=== PATIENT | female | born 1950 | race Asian ===

== ENCOUNTER 2022-08-17 04:34 | Inpatient (IN) | payer OTHER ==
[2022-08-12 12:09] VITALS: BMI 20.5
[2022-08-17] MEDS ORDERED: METHYLENE BLUE 50 MG/10 ML AMPUL ONE (11:08)
[2022-08-17] MEDS ORDERED: LIDOCAINE HCL 1%, 10 MG/ML (20ML VIAL) ONE (11:08)
[2022-08-17] MEDS ORDERED: ACETAMINOPHEN INJECTION 200 ML IVPB ONE (12:07)
[2022-08-17] MEDS ORDERED: DEXMEDETOMIDINE HCL 200 MCG/2 ML IVPB ONE (12:07)
[2022-08-17] MEDS ORDERED: FENTANYL CITRATE/PF 50 MCG/ML VIAL ONE ×2 (12:08→15:32)
[2022-08-17] MEDS ORDERED: MIDAZOLAM HCL 2 MG/2 ML SINGLE DOSE VIAL ONE (12:09)
[2022-08-17] MEDS ORDERED: PROPOFOL 40 ML ONE (12:16)
[2022-08-17] MEDS ORDERED: SUCCINYLCHOLINE CHLORIDE 200 MG/10 ML SYRINGE ONE (12:16)
[2022-08-17] MEDS ORDERED: ISOSULFAN BLUE 50 MG/5 ML VIAL SQ ONE (12:35)
[2022-08-17] MEDS ORDERED: ceFAZolin SODIUM 1 GM VIAL IVPB ONE (13:18)
[2022-08-17] MEDS ORDERED: GENTAMICIN SO4 80 MG/2 ML VIAL ONE (13:41)
[2022-08-17] MEDS ORDERED: VANCOMYCIN 1,000 MG VIAL (RESTRICTED TO ID ONLY) ONE (13:42)
[2022-08-17] MEDS ORDERED: HEPARIN NA (PORCINE) 5,000 UNITS/ML 1ML VIAL SQ ONE (13:59)
[2022-08-17] MEDS ORDERED: HEPARIN NA (PORCINE) PF 1,000 UNITS/ML - 2ML VIAL SQ ONE (14:02)
[2022-08-17] MEDS ORDERED: LIDOCAINE HCL 1%, 10 MG/ML (20ML VIAL) INF ONE (14:04)
[2022-08-17] MEDS ORDERED: BUPIVACAINE HCL/PF 0.5% (5MG/ML) 10 ML VIAL IJ ONE (14:05)
[2022-08-17] MEDS ORDERED: ONDANSETRON 4 MG/2 ML VIAL IVPB PRN (15:05)
[2022-08-17] MEDS ORDERED: ACETAMINOPHEN 325 MG TABLET (FP) PO PRN ×2 (15:05→15:08)
[2022-08-17] MEDS ORDERED: ALPRAZolam 1 MG TABLET PO PRN (15:05)
[2022-08-17] MEDS ORDERED: HYDROmorphone HCl 2 MG/ML VIAL IM PRN (15:07)
[2022-08-17] MEDS ORDERED: oxyCODONE HCL 5 MG TABLET PO PRN (15:08)
[2022-08-17] MEDS ORDERED: LACTATED RINGERS SOLUTION 1,000 ML/1,000 ML INFUS.BAG IV SCH (15:15)
[2022-08-17] MEDS: CEFAZOLIN 1 GM in DEXTROSE 5%-WATER - 50 ML IVPB SCH (22:00)
[2022-08-18] MEDS: CEFAZOLIN 1 GM in DEXTROSE 5%-WATER - 50 ML IVPB SCH ×2 (06:00→15:35)
[2022-08-18 15:14] VITALS: BP 117/64; PULSE 72; TEMP 98.4
[2022-08-18 16:43] VITALS: RESP 18
== END 2022-08-18 19:00 | disposition home or self-care (01) | DRG 581 ==
LOC: J2C 04:34 → J6S 20:03
PROVIDERS: ADMIT Surgery; ATTEND Surgery
PROC: 0HTU0ZZ Resection of Left Breast, Open Approach (ICD-10-PCS; principal; 2022-08-17 11:00)
PROC: 07B60ZX Excision of Left Axillary Lymphatic, Open Approach, Diagnostic (ICD-10-PCS; 2022-08-17 11:00)
PROC: 02HV33Z Insertion of Infusion Device into Superior Vena Cava, Percutaneous Approach (ICD-10-PCS; 2022-08-17 11:00)
PROC: B518ZZA Fluoroscopy of Superior Vena Cava, Guidance (ICD-10-PCS; 2022-08-17 11:00)
DX: C50.912 Malignant neoplasm of unspecified site of left female breast (principal); I10 Essential (primary) hypertension; E78.5 Hyperlipidemia, unspecified; E11.9 Type 2 diabetes mellitus without complications
CPT/HCPCS: 71045-TC-FY; 76000-TC-FY; 82962; 88305-TC; 88307-TC; 88309-TC; 94760; A9541; C9803-CS; J1644; Q9968; U0003; U0005

== ENCOUNTER 2022-09-28 10:28 | Day surgery (SDC) | payer OTHER ==
[~2022-09-28 10:28] MED LIST: DEXAMETHASONE SODIUM PHOSPHATE IVPB ONE; DIPHENHYDRAMINE 25 MG in SODIUM CHLORIDE 50 ML IVPB ONE; DIPHENHYDRAMINE IVPB ONE; PACLITAXEL PROTEIN BOUND IVPB ONE; SODIUM CHLORIDE IVPB ONE; [UNRECOGNIZED DRUG - OTHER] IVPB ONE
[2022-09-28] MEDS ORDERED: SODIUM CHLORIDE IVPB ONE (11:00)
[2022-09-28] MEDS ORDERED: PACLITAXEL PROTEIN BOUND IVPB ONE (11:00)
[2022-09-28] MEDS ORDERED: PEMBROLIZUMAB 200 MG in SODIUM CHLORIDE 50 ML IV ONE (11:30)
[2022-09-28 11:38] LABS: BASO % 0.8 % (0-2.0); LYMPH % 41.1 % (8-40); MCH 29.2 pg (25.7-33.7); MCHC 33.4 g/dl (32.0-36.0); MEAN CELL VOLUME 87.6 fl (80-96); MEAN PLT VOLUME 7.1 fl (7.5-11.1); MONO % 5.6 % (3.8-10.2); NEUT % 49.5 % (42.8-82.8); PLATELET COUNT 365 10^3/uL (134-434); RDW 13.7 % (11.6-15.6); WHITE BLOOD COUNT 8.3 K/mm3 (4.0-10.0)
[2022-09-28 12:00] LABS: CALCIUM 9.8 mg/dL (8.5-10.1)
[2022-09-28 12:01] LABS: ALBUMIN 4.2 g/dl (3.4-5.0); BLOOD UREA NITROGEN 11.4 mg/dL (7-18); MAGNESIUM 2.6 mg/dL (1.8-2.4)
[2022-09-28 12:04] LABS: CREATININE 0.5 mg/dL (0.55-1.3)
[2022-09-28 12:05] LABS: BILIRUBIN,TOTAL 0.7 mg/dL (0.2-1)
[2022-09-28 12:06] LABS: TOT PROT 7.8 g/dl (6.4-8.2)
[2022-09-28 15:31] VITALS: BP 139/67; PULSE 73; RESP 20; TEMP 98.5
[2022-09-28] MEDS ORDERED: PORTA CATH FLUSH 10 ML IVPUSH PRN (15:50)
== END 2022-09-28 15:25 | disposition home or self-care (01) ==
LOC: JONCCHEMO 10:28
PROVIDERS: ATTEND Internal Medicine Hematology & Oncology
DX: Z51.11 Encounter for antineoplastic chemotherapy (principal); C50.919 Malignant neoplasm of unspecified site of unspecified female breast
CPT/HCPCS: 36415; 80053; 82533; 83735; 84439; 84443; 84479; 85025; 96367; 96413; 96417; J9264; J9271

== ENCOUNTER 2022-10-06 10:26 | Day surgery (SDC) | payer OTHER ==
[~2022-10-06 10:26] MED LIST changes: +DEXAMETHASONE SODIUM PHOSPHATE 8 MG, ONDANSETRON INJECTION 8 MG, DIPHENHYDRAMINE 25 MG ... IVPB ONE; -DEXAMETHASONE SODIUM PHOSPHATE IVPB ONE; -DIPHENHYDRAMINE 25 MG in SODIUM CHLORIDE 50 ML IVPB ONE; -DIPHENHYDRAMINE IVPB ONE; -[UNRECOGNIZED DRUG - OTHER] IVPB ONE
[2022-10-06 11:28] LABS: BASO % 0.8 % (0-2.0); EOS % 3.6 % (0-4.5); HEMATOCRIT 39.6 % (32.4-45.2); HEMOGLOBIN 13.4 GM/dL (10.7-15.3); MCH 29.7 pg (25.7-33.7); MCHC 33.8 g/dl (32.0-36.0); MEAN CELL VOLUME 87.9 fl (80-96); MONO % 6.6 % (3.8-10.2); PLATELET COUNT 385 10^3/uL (134-434); RDW 13.7 % (11.6-15.6); WHITE BLOOD COUNT 8.7 K/mm3 (4.0-10.0)
[2022-10-06 11:47] LABS: CALCIUM 9.8 mg/dL (8.5-10.1)
[2022-10-06 11:48] LABS: ALBUMIN 4.1 g/dl (3.4-5.0); BLOOD UREA NITROGEN 13.1 mg/dL (7-18); MAGNESIUM 2.7 mg/dL (1.8-2.4)
[2022-10-06 11:50] LABS: BILIRUBIN,DIRECT 0.2 mg/dL (0.0-0.2)
[2022-10-06 11:51] LABS: CREATININE 0.5 mg/dL (0.55-1.3)
[2022-10-06 11:52] LABS: BILIRUBIN,TOTAL 0.7 mg/dL (0.2-1); TOT PROT 7.7 g/dl (6.4-8.2)
[2022-10-06] MEDS ORDERED: DEXAMETHASONE SODIUM PHOSPHATE 10 MG, ONDANSETRON INJECTION 8 MG, DIPHENHYDRAMINE 25 MG... IVPB ONE (12:30)
[2022-10-06] MEDS ORDERED: FAMOTIDINE 20 MG/50 ML IVPB 20 MG/50 ML MG IVPB ONE (13:00)
[2022-10-06 17:22] VITALS: RESP 18; TEMP 98.4
[2022-10-06 17:40] VITALS: BP 114/64; PULSE 65
[2022-10-06] MEDS ORDERED: PORTA CATH FLUSH 10 ML IVPUSH PRN (17:40)
== END 2022-10-06 15:45 | disposition home or self-care (01) ==
LOC: JONCCHEMO 10:26
PROVIDERS: ATTEND Internal Medicine Hematology & Oncology
DX: Z51.11 Encounter for antineoplastic chemotherapy (principal); C50.919 Malignant neoplasm of unspecified site of unspecified female breast
CPT/HCPCS: 36415; 80048; 80076; 83735; 85025; 96367; 96413; J9264

== ENCOUNTER 2022-10-12 09:00 | Day surgery (SDC) | payer OTHER ==
[2022-10-12] MEDS ORDERED: DEXAMETHASONE SODIUM PHOSPHATE 10 MG, ONDANSETRON INJECTION 8 MG, DIPHENHYDRAMINE 25 MG... IVPB ONE (09:30)
[2022-10-12] MEDS ORDERED: FAMOTIDINE 20 MG/50 ML IVPB 20 MG/50 ML MG IVPB ONE (09:30)
[2022-10-12 09:40] LABS: BASO % 1.1 % (0-2.0); EOS % 2.2 % (0-4.5); HEMATOCRIT 38.7 % (32.4-45.2); LYMPH % 39.4 % (8-40); MCH 29.7 pg (25.7-33.7); MCHC 33.7 g/dl (32.0-36.0); MEAN CELL VOLUME 88.3 fl (80-96); MEAN PLT VOLUME 7.7 fl (7.5-11.1); MONO % 2.6 % (3.8-10.2); NEUT % 54.7 % (42.8-82.8); PLATELET COUNT 359 10^3/uL (134-434); RBC 4.38 M/mm3 (3.60-5.2); RDW 13.3 % (11.6-15.6); WHITE BLOOD COUNT 7.4 K/mm3 (4.0-10.0)
[2022-10-12 09:56] LABS: CALCIUM 9.2 mg/dL (8.5-10.1)
[2022-10-12 09:57] LABS: ALBUMIN 3.8 g/dl (3.4-5.0); BLOOD UREA NITROGEN 11.5 mg/dL (7-18); MAGNESIUM 2.2 mg/dL (1.8-2.4)
[2022-10-12 09:59] LABS: BILIRUBIN,DIRECT 0.1 mg/dL (0.0-0.2); CREATININE 0.6 mg/dL (0.55-1.3)
[2022-10-12] MEDS ORDERED: PACLITAXEL PROTEIN BOUND IVPB ONE (10:00)
[2022-10-12] MEDS ORDERED: SODIUM CHLORIDE IVPB ONE (10:00)
[2022-10-12 10:01] LABS: BILIRUBIN,TOTAL 0.7 mg/dL (0.2-1); TOT PROT 7.2 g/dl (6.4-8.2)
[2022-10-12] MEDS ORDERED: INSULIN (NOVOLOG) ASPART 100 UNITS/ML 10ML VIAL SQ ONE (11:15)
[2022-10-12 16:54] VITALS: RESP 18; TEMP 98.8
[2022-10-12] MEDS ORDERED: PORTA CATH FLUSH 10 ML IVPUSH PRN (16:59)
[2022-10-12 17:00] VITALS: BP 121/63; PULSE 68
== END 2022-10-12 13:45 | disposition home or self-care (01) ==
LOC: JONCCHEMO 09:00
PROVIDERS: ATTEND Internal Medicine Hematology & Oncology
PROC: 3E04305 Introduction of Other Antineoplastic into Central Vein, Percutaneous Approach (ICD-10-PCS; principal; 2022-10-12)
PROC: 3E043GC Introduction of Other Therapeutic Substance into Central Vein, Percutaneous Approach (ICD-10-PCS; 2022-10-12)
DX: Z51.11 Encounter for antineoplastic chemotherapy (principal); C50.912 Malignant neoplasm of unspecified site of left female breast
CPT/HCPCS: 36415; 80048; 80076; 83735; 85025; 96367; 96413; J9264

== ENCOUNTER 2022-10-19 08:49 | Day surgery (SDC) | payer OTHER ==
[2022-10-19] MEDS ORDERED: SODIUM CHLORIDE 250 ML IV ONE (09:00)
[2022-10-19] MEDS ORDERED: PEMBROLIZUMAB 200 MG in SODIUM CHLORIDE 50 ML IV ONE (10:00)
[2022-10-19 10:37] LABS: HEMATOCRIT 38.4 % (32.4-45.2); HEMOGLOBIN 12.9 GM/dL (10.7-15.3); MCH 30.1 pg (25.7-33.7); MCHC 33.7 g/dl (32.0-36.0); MEAN CELL VOLUME 89.2 fl (80-96); MEAN PLT VOLUME 7.2 fl (7.5-11.1); PLATELET COUNT 381 10^3/uL (134-434); RDW 13.8 % (11.6-15.6); WHITE BLOOD COUNT 12.5 K/mm3 (4.0-10.0)
[2022-10-19 11:01] LABS: EPI CELLS 13 /uL (0-25.1); HYALINE CASTS 0 /uL (0-3.1); PH,URINE 5.5 (5.0-8.0); URINE APPEARANCE CLEAR; URINE BACTERIA 15 /uL (0-1359); URINE BILIRUBIN NEGATIVE (NEGATIVE); URINE COLOR YELLOW; URINE GLUCOSE (UA) NEGATIVE (NEGATIVE); URINE KETONE NEGATIVE (NEGATIVE); URINE LEUK ESTERASE TRACE (NEGATIVE); URINE NITRITE NEGATIVE (NEGATIVE); URINE PROTEIN NEGATIVE (NEGATIVE); URINE RBC 14 /uL (0-23.9); URINE UROBILINOGEN 0.2 mg/dL (0.2-1.0); URINE WBC 9 /uL (0-25.8)
[2022-10-19 11:02] LABS: ANISOCYTOSIS 0; HELMET CELLS 0; HOWELL-JOLLY BODIES 0; MACROCYTOSIS 0; OVALOCYTE 0; ROULEAU 0; SICKELED CELLS 0; TARGET CELLS 0; TEAR DROP CELLS 0; TOXIC GRANULATION 0
[2022-10-19 11:08] LABS: CALCIUM 9.6 mg/dL (8.5-10.1)
[2022-10-19 11:09] LABS: ALBUMIN 3.9 g/dl (3.4-5.0); BLOOD UREA NITROGEN 12.3 mg/dL (7-18); MAGNESIUM 2.4 mg/dL (1.8-2.4)
[2022-10-19 11:11] LABS: BILIRUBIN,DIRECT 0.1 mg/dL (0.0-0.2)
[2022-10-19 11:12] LABS: CREATININE 0.5 mg/dL (0.55-1.3)
[2022-10-19 11:13] LABS: TOT PROT 7.2 g/dl (6.4-8.2)
[2022-10-19 11:14] LABS: BILIRUBIN,TOTAL 0.5 mg/dL (0.2-1)
[2022-10-19 15:43] VITALS: RESP 20; TEMP 98.7
[2022-10-19 15:50] VITALS: BP 118/69; PULSE 80
[2022-10-19] MEDS ORDERED: PORTA CATH FLUSH 10 ML IVPUSH PRN (15:50)
== END 2022-10-19 13:15 | disposition home or self-care (01) ==
LOC: JONCCHEMO 08:49
PROVIDERS: ATTEND Internal Medicine Hematology & Oncology
DX: Z51.11 Encounter for antineoplastic chemotherapy (principal); C50.912 Malignant neoplasm of unspecified site of left female breast
CPT/HCPCS: 36415; 80048; 80076; 81003; 83735; 85025; 87077; 87086; 96413; J9271

== ENCOUNTER 2023-10-05 04:29 | Day surgery (SDC) | payer OTHER ==
[2023-09-29 17:07] VITALS: BMI 20.7
[~2023-10-05 04:29] MED LIST changes: -DEXAMETHASONE SODIUM PHOSPHATE 8 MG, ONDANSETRON INJECTION 8 MG, DIPHENHYDRAMINE 25 MG ... IVPB ONE; +LIDOCAINE HCL 1%, 10 MG/ML (20ML VIAL) INF ONE; -PACLITAXEL PROTEIN BOUND IVPB ONE; -SODIUM CHLORIDE IVPB ONE
[2023-10-05] MEDS ORDERED: LIDOCAINE HCL 1%, 10 MG/ML (20ML VIAL) ONE (11:19)
[2023-10-05 11:22] VITALS: RESP 16; TEMP 97.3
[2023-10-05] MEDS ORDERED: LIDOCAINE HCL 1%, 10 MG/ML (20ML VIAL) INF ONE (12:22)
[2023-10-05 13:16] VITALS: BP 117/70; PULSE 74
== END 2023-10-05 13:30 | disposition home or self-care (01) ==
LOC: JASU-SURG 04:29
PROVIDERS: ATTEND Surgery
PROC: 0JPT0WZ Removal of Totally Implantable Vascular Access Device from Trunk Subcutaneous Tissue and Fascia, Open Approach (ICD-10-PCS; principal; 2023-10-05 11:30)
DX: C50.919 Malignant neoplasm of unspecified site of unspecified female breast (principal)
CPT/HCPCS: 82962